=== PATIENT | male | born 1955 | race Caucasian/White ===

== ENCOUNTER 2017-03-31 01:50 | Emergency (ER) | payer MEDICAID ==
[~2017-03-31] VITALS: Ht 175.3 cm; Wt 73.0 kg
[~2017-03-31 01:50] MED LIST: AMLO5TAB88; ATOR40TA70; CLON2TAB4; COLC0.6T66; ENAL20TA; EZET10TA; GEMF600T3; GLIP10TA10; GLYB5TAB7; HYDR-2510; MELO-58; METF500T4; MIRT-91; OMEP20TA80; PIOG1TAB35; SITA100T6; TEMA30CA; TRIC54; [UNRECOGNIZED DRUG - CODE]; [UNRECOGNIZED DRUG - CODE]
[2017-03-31 03:19] LABS: BASOPHILS % 0.8 % (0.0-2.0); DIFFERENTIAL COMMENT 0; EOSINOPHILS % 2.1 % (0.0-5.0); HEMATOCRIT. 41.5 % (42.0-52.0); HEMOGLOBIN. 14.8 g/dL (14.0-18.0); LYMPHOCYTES % 32.8 % (20.0-50.0); MEAN CORPUSCULAR HEMOGLOBIN 30.5 pg (28.0-32.0); MEAN CORPUSCULAR HGB CONC 35.7 g/dL (31.0-37.0); MEAN CORPUSCULAR VOLUME 85.6 fL (80.0-94.0); MONOCYTES % 7.2 % (2.0-8.0); NEUTROPHILS % 57.1 % (40.0-76.0); PLATELET 162 x1000/uL (130-400); RED BLOOD CELL COUNT 4.85 mill/uL (4.7-6.1); RED CELL DISTRIBUTION WIDTH 12.8 % (11.6-14.6); WHITE BLOOD COUNT 6.2 x1000/uL (4.5-11.0)
[2017-03-31 03:32] LABS: ALANINE AMINOTRANSFERASE 21 IU/L (13-61); ALBUMIN 3.8 g/dL (3.4-5.0); ANION GAP 17; CALCIUM 8.7 mg/dL (8.5-10.1); CARBON DIOXIDE 23 mEq/L (21-32); CHLORIDE 101 mEq/L (98-107); INDEX HEMOLYSI 1 (1-3); INDEX ICTERIC 1 (1-4); INDEX LIPEMIC 1 (1-3); LIPASE 413 IU/L (73-393); TROPONIN I < 0.02 ng/mL (0.00-0.04); UREA NITROGEN BLOOD 8 mg/dL (7-21); eGFR > 60 mL/min (>60)
[2017-03-31] MEDS: MORPHINE SULFATE 4 MG/ML CPJ (NOT FOR IM USE) IV STA (03:40)
[2017-03-31] MEDS: SODIUM CHLORIDE 0.9% 1,000 ML IV ONE (03:41)
[2017-03-31] MEDS: ONDANSETRON HCL 4MG/2ML VIAL IV STA (03:41)
[2017-03-31] MEDS: HYDROCODONE/ACETAMINOPHEN 10/325MG TABLET PO ONE (06:21)
[2017-03-31] MEDS: INSULIN REGULAR (HUMULIN R) 300UNITS/3ML SUBCUT ONE (06:23)
[2017-03-31 06:28] VITALS: BP 106/79
[2017-03-31] MEDS ORDERED: IOHEXOL-350 100 ML BOTTLE ONE (13:50)
[2017-03-31] MEDS ORDERED: SODIUM CHLORIDE 0.9% 10ML VIAL ONE (13:50)
== END 2017-03-31 06:33 | disposition home or self-care (01) ==
LOC: ER 01:56
DX: M54.9 Dorsalgia, unspecified (principal); I10 Essential (primary) hypertension; E78.00 Pure hypercholesterolemia, unspecified; E11.9 Type 2 diabetes mellitus without complications; Z79.899 Other long term (current) drug therapy; Z79.84 Long term (current) use of oral hypoglycemic drugs
CPT/HCPCS: 36415; 71010; 71275; 80053; 83690; 84484; 85025; 93005; 96361; 96372; 96374; 96375; 99285; A4216; J1815; J2270; J2405; J7030; Q9967; Z7610

== ENCOUNTER 2017-05-02 00:49 | Emergency (ER) | payer MEDICAID ==
[~2017-05-02] VITALS: Ht 180.3 cm; Wt 80.0 kg
[~2017-05-02 00:49] MED LIST changes: -AMLO5TAB88; +AMLO5TAB88 PO; -ATOR40TA70; +ATOR40TA70 PO; +CITA40TA11; -CLON2TAB4; +CLON2TAB4 PO; -ENAL20TA; +ENAL20TA PO; -EZET10TA; +MELO-106; -MELO-58; -MIRT-91; +MIRT-91 PO; +OMEP20TA2 PO; -OMEP20TA80; +SITA100T11 PO; -SITA100T6; +ZET10; -[UNRECOGNIZED DRUG - CODE]; -[UNRECOGNIZED DRUG - CODE]; +[UNRECOGNIZED DRUG - CODE] PO
[2017-05-02] MEDS ORDERED: KETOROLAC 30MG/ML VIAL IV STA (03:52)
[2017-05-02] MEDS ORDERED: ASPIRIN 81MG TABLET PO ONE (04:00)
[2017-05-02] MEDS ORDERED: NITROGLYCERIN OINT 1GM/INCH UDPKT TD ONE (04:00)
[2017-05-02] MEDS ORDERED: LIDOCAINE 5% PATCH TOP SCH (04:00)
[2017-05-02 04:12] LABS: BASOPHILS % 0.5 % (0.0-2.0); HEMATOCRIT. 39.6 % (42.0-52.0); HEMOGLOBIN. 13.7 g/dL (14.0-18.0); LYMPHOCYTES % 12.7 % (20.0-50.0); MEAN CORPUSCULAR HEMOGLOBIN 30.2 pg (28.0-32.0); MEAN CORPUSCULAR VOLUME 87.2 fL (80.0-94.0); MEAN PLATELET VOLUME 11.4 fl (7.4-10.4); MONOCYTES % 6.5 % (2.0-8.0); NEUTROPHILS % 79.3 % (40.0-76.0); PLATELET 172 x1000/uL (130-400); RED BLOOD CELL COUNT 4.55 mill/uL (4.7-6.1)
[2017-05-02 04:26] LABS: CHLORIDE 99 mEq/L (98-107); ETHANOL BLOOD < 10 mg/dL; TROPONIN I < 0.02 ng/mL (0.00-0.04)
[2017-05-02 04:37] LABS: CARBON DIOXIDE 22 mEq/L (21-32)
[2017-05-02] MEDS ORDERED: SODIUM CHLORIDE 0.9% 1,000 ML IV ONE (04:55)
[2017-05-02 06:53] VITALS: BP 121/83
== END 2017-05-02 06:57 | disposition home or self-care (01) ==
LOC: ER 00:56
DX: S20.212A Contusion of left front wall of thorax, initial encounter (principal); S20.211A Contusion of right front wall of thorax, initial encounter; E11.65 Type 2 diabetes mellitus with hyperglycemia; E78.00 Pure hypercholesterolemia, unspecified; I11.9 Hypertensive heart disease without heart failure; F17.210 Nicotine dependence, cigarettes, uncomplicated; Z91.14 Patient's other noncompliance with medication regimen; Z79.84 Long term (current) use of oral hypoglycemic drugs; X58.XXXA Exposure to other specified factors, initial encounter; Y93.89 Activity, other specified; Y92.018 Other place in single-family (private) house as the place of occurrence of the external cause
CPT/HCPCS: 36415; 71010; 80053; 83690; 83880; 84484; 85025; 85379; 93005; 96361; 96374; 99291; G0482; J1885; J7030; 29125; 99284

== ENCOUNTER 2017-07-06 02:36 | Inpatient (IN) | payer MEDICAID ==
[~2017-07-06] VITALS: Ht 180.3 cm; Wt 73.0 kg
[2017-07-06] MEDS ORDERED: ASPIRIN 81MG TABLET PO STA (03:48)
[2017-07-06] MEDS ORDERED: NITROGLYCERIN 0.4MG TABLET SL SL PRN (04:00)
[2017-07-06 04:18] LABS: BASOPHILS % 0.9 % (0.0-2.0); EOSINOPHILS % 1.8 % (0.0-5.0); HEMATOCRIT. 41.7 % (42.0-52.0); HEMOGLOBIN. 14.5 g/dL (14.0-18.0); LYMPHOCYTES % 23.7 % (20.0-50.0); MEAN CORPUSCULAR HEMOGLOBIN 30.4 pg (28.0-32.0); MEAN CORPUSCULAR VOLUME 87.5 fL (80.0-94.0); MEAN PLATELET VOLUME 11.3 fl (7.4-10.4); MONOCYTES % 7.8 % (2.0-8.0); NEUTROPHILS % 65.8 % (40.0-76.0); PLATELET 217 x1000/uL (130-400); RED BLOOD CELL COUNT 4.76 mill/uL (4.7-6.1); RED CELL DISTRIBUTION WIDTH 12.9 % (11.6-14.6)
[2017-07-06 04:28] LABS: D-DIMER 0.43 mg/L FEU (<0.50); PARTIAL THROMBOPLASTIN TIME 23.3 sec (23.4-31.0); PROTHROMBIN TIME 10.4 sec (9.4-11.6)
[2017-07-06 04:32] LABS: TROPONIN I < 0.02 ng/mL (0.00-0.04)
[2017-07-06 04:34] LABS: CARBON DIOXIDE 28 mEq/L (21-32); CHLORIDE 94 mEq/L (98-107)
[2017-07-06] MEDS ORDERED: SODIUM CHLORIDE 0.9% 1,000 ML IV ONE (04:52)
[2017-07-06] MEDS ORDERED: INSULIN REGULAR (HUMULIN R) UD 100 UNITS/ML SYR SUBCUT ONE (05:00)
[2017-07-06] MEDS ORDERED: ONDANSETRON HCL 4MG/2ML VIAL IV STA (05:13)
[2017-07-06] MEDS ORDERED: MORPHINE SULFATE 4 MG/ML CPJ (NOT FOR IM USE) IV STA (05:13)
[2017-07-06 08:30] VITALS: BP 129/97
[2017-07-06 08:36] VITALS: BP 129/97
[2017-07-06] MEDS ORDERED: MORPHINE SULFATE 2 MG/ML CPJ (NOT FOR IM USE) IV PRN (10:15)
[2017-07-06] MEDS ORDERED: ONDANSETRON HCL 4MG/2ML VIAL IV PRN (10:15)
[2017-07-06] MEDS ORDERED: DEXTROSE 50% WATER 50ML SYRINGE IV PRN (10:15)
[2017-07-06] MEDS ORDERED: FENO145T19 PO (10:54)
[2017-07-06] MEDS ORDERED: HYDR-519 PO (11:33)
[2017-07-06] MEDS ORDERED: IBUP-2030 PO (11:33)
[2017-07-06] MEDS ORDERED: DOCU-138 PO (11:33)
[2017-07-06] MEDS ORDERED: ASEN5TAB8 SL (11:46)
[2017-07-06] MEDS ORDERED: DICL75TA5 PO (11:46)
[2017-07-06 12:19] LABS: CREATINE KINASE 45 IU/L (39-308); CREATINE KINASE MB FRACTION < 0.5 ng/mL (0.5-3.6); TROPONIN I < 0.02 ng/mL (0.00-0.04)
[2017-07-06] MEDS: DEXT 5%/0.9% NACL 1,000 ML IV SCH ×2 (12:50→21:03)
[2017-07-06] MEDS: BLOOD SUGAR DIAGNOSTIC STRIP TEST SCH ×3 (12:51→21:00)
[2017-07-06] MEDS: ENOXAPARIN 40MG/0.4ML SYR SUBCUT SCH (12:51)
[2017-07-06] MEDS ORDERED: CLONIDINE 0.2MG TABLET PO PRN (13:30)
[2017-07-06] MEDS ORDERED: MORPHINE SULFATE 2 MG/ML CPJ (NOT FOR IM USE) IV NR (13:45)
[2017-07-06] MEDS ORDERED: CLONIDINE 0.1MG TABLET PO PRN (14:00)
[2017-07-06] MEDS: ASPIRIN 81MG TABLET PO SCH (15:01)
[2017-07-06] MEDS: ATORVASTATIN CALCIUM 40MG TABLET PO SCH (15:02)
[2017-07-06] MEDS: LINAGLIPTIN 5MG TABLET PO SCH (15:02)
[2017-07-06] MEDS: OMEPRAZOLE 20MG CAPSULE EXTENDED RELEASE PO SCH (15:02)
[2017-07-06] MEDS: AMLODIPINE 2.5MG TABLET PO SCH ×2 (15:02→21:01)
[2017-07-06] MEDS: INSULIN LISPRO 100 UNITS/ML SUBCUT SCH ×3 (15:03→21:00)
[2017-07-06] MEDS: FENOFIBRATE NANOCRYSTALLIZED 145MG TABLET PO SCH (15:03)
[2017-07-06 16:00] VITALS: BP 136/93
[2017-07-06] MEDS ORDERED: MEDICATION NOT ON FORMULARY EA (Enalapril Maleate 20 MG) PO SCH (17:00)
[2017-07-06] MEDS ORDERED: MEDICATION NOT ON FORMULARY EA (Clonazepam 2 MG) PO SCH (17:00)
[2017-07-06] MEDS: CLONAZEPAM 1MG TABLET PO SCH (18:40)
[2017-07-06 20:00] VITALS: BP 138/90
[2017-07-06] MEDS ORDERED: DOXEPIN HCL 100 MG PO SCH (21:00)
[2017-07-06] MEDS ORDERED: ASENAPINE 5 MG SL SCH (21:00)
[2017-07-06] MEDS: MIRTAZAPINE 30MG TABLET PO SCH (21:01)
[2017-07-06] MEDS: ENALAPRIL 10MG TABLET PO SCH (21:02)
[2017-07-06] MEDS: MORPHINE SULFATE 2 MG/ML CPJ (NOT FOR IM USE) IV PRN (21:03)
[2017-07-06] MEDS: DOXEPIN HCL 25MG CAPSULE PO SCH (22:07)
[2017-07-06] MEDS: ZOLPIDEM TARTRATE 5MG TABLET PO PRN (23:31)
[2017-07-07] VITALS: BP 136/97
[2017-07-07] MEDS: MORPHINE SULFATE 2 MG/ML CPJ (NOT FOR IM USE) IV PRN ×4 (02:56→22:41)
[2017-07-07 04:00] VITALS: BP 95/63
[2017-07-07 06:40] LABS: BASOPHILS % 0.8 % (0.0-2.0); EOSINOPHILS % 2.1 % (0.0-5.0); HEMATOCRIT. 40.1 % (42.0-52.0); HEMOGLOBIN. 14.1 g/dL (14.0-18.0); LYMPHOCYTES % 30.9 % (20.0-50.0); MEAN CORPUSCULAR HEMOGLOBIN 30.5 pg (28.0-32.0); MEAN CORPUSCULAR VOLUME 86.4 fL (80.0-94.0); MEAN PLATELET VOLUME 10.7 fl (7.4-10.4); MONOCYTES % 6.6 % (2.0-8.0); NEUTROPHILS % 59.6 % (40.0-76.0); PLATELET 199 x1000/uL (130-400); RED BLOOD CELL COUNT 4.63 mill/uL (4.7-6.1); RED CELL DISTRIBUTION WIDTH 13.1 % (11.6-14.6)
[2017-07-07 07:02] LABS: AMYLASE 52 IU/L (25-115); CARBON DIOXIDE 27 mEq/L (21-32); HDL CHOLESTEROL 30 mg/dL (40-59); LDL CHOLESTEROL 130 mg/dL (5-100)
[2017-07-07 07:09] LABS: TROPONIN I < 0.02 ng/mL (0.00-0.04)
[2017-07-07 07:24] LABS: CHLORIDE 102 mEq/L (98-107)
[2017-07-07] MEDS: BLOOD SUGAR DIAGNOSTIC STRIP TEST SCH ×4 (07:40→20:56)
[2017-07-07 08:00] VITALS: BP 132/90
[2017-07-07] MEDS: FENOFIBRATE NANOCRYSTALLIZED 145MG TABLET PO SCH (08:45)
[2017-07-07] MEDS: ATORVASTATIN CALCIUM 40MG TABLET PO SCH (08:45)
[2017-07-07] MEDS: ENALAPRIL 10MG TABLET PO SCH ×2 (08:45→20:56)
[2017-07-07] MEDS: ENOXAPARIN 40MG/0.4ML SYR SUBCUT SCH (08:45)
[2017-07-07] MEDS: AMLODIPINE 2.5MG TABLET PO SCH ×2 (08:46→20:57)
[2017-07-07] MEDS: LINAGLIPTIN 5MG TABLET PO SCH (08:46)
[2017-07-07] MEDS: OMEPRAZOLE 20MG CAPSULE EXTENDED RELEASE PO SCH (08:46)
[2017-07-07] MEDS: ASPIRIN 81MG TABLET PO SCH (08:46)
[2017-07-07] MEDS: CLONAZEPAM 1MG TABLET PO SCH ×2 (08:46→16:24)
[2017-07-07] MEDS: INSULIN LISPRO 100 UNITS/ML SUBCUT SCH ×4 (08:48→21:15)
[2017-07-07] MEDS ORDERED: MEDICATION NOT ON FORMULARY EA (Sitagliptin Phosphate (Januvia) 100 MG) PO SCH (09:00)
[2017-07-07] MEDS ORDERED: MEDICATION NOT ON FORMULARY EA (Omeprazole 20 MG) PO SCH (09:00)
[2017-07-07 12:00] VITALS: BP 104/71
[2017-07-07] MEDS: DEXT 5%/0.9% NACL 1,000 ML IV SCH (13:10)
[2017-07-07] MEDS ORDERED: POTASSIUM CHLORIDE 20MEQ TABLET SR PO SCH (14:15)
[2017-07-07] MEDS ORDERED: IOHEXOL-300 100 ML BOTTLE ONE (14:32)
[2017-07-07] MEDS ORDERED: SODIUM CHLORIDE 0.9% 10ML VIAL ONE (14:32)
[2017-07-07] MEDS ORDERED: KCL 20MEQ/100ML PREMIX 100 ML IV SCH (15:30)
[2017-07-07 16:00] VITALS: BP 116/80
[2017-07-07 20:00] VITALS: BP 109/71
[2017-07-07] MEDS: MIRTAZAPINE 30MG TABLET PO SCH (21:10)
[2017-07-07] MEDS: DOXEPIN HCL 25MG CAPSULE PO SCH (21:10)
[2017-07-07] MEDS: ZOLPIDEM TARTRATE 5MG TABLET PO PRN (21:10)
[2017-07-08] VITALS: BP 122/75
[2017-07-08] MEDS: DEXT 5%/0.9% NACL 1,000 ML IV SCH ×2 (02:15→14:07)
[2017-07-08 04:00] VITALS: BP 128/87
[2017-07-08] MEDS: BLOOD SUGAR DIAGNOSTIC STRIP TEST SCH ×2 (06:59→12:27)
[2017-07-08 08:00] VITALS: BP 132/83
[2017-07-08] MEDS: ATORVASTATIN CALCIUM 40MG TABLET PO SCH (08:06)
[2017-07-08] MEDS: FENOFIBRATE NANOCRYSTALLIZED 145MG TABLET PO SCH (08:06)
[2017-07-08] MEDS: CLONAZEPAM 1MG TABLET PO SCH ×2 (08:06→16:17)
[2017-07-08] MEDS: ENOXAPARIN 40MG/0.4ML SYR SUBCUT SCH (08:07)
[2017-07-08] MEDS: FAMOTIDINE 20MG TABLET PO SCH ×2 (08:07→16:17)
[2017-07-08] MEDS: ASPIRIN 81MG TABLET PO SCH (08:07)
[2017-07-08] MEDS: AMLODIPINE 2.5MG TABLET PO SCH (08:07)
[2017-07-08] MEDS: LINAGLIPTIN 5MG TABLET PO SCH (08:07)
[2017-07-08] MEDS: INSULIN LISPRO 100 UNITS/ML SUBCUT SCH ×2 (08:09→13:55)
[2017-07-08] MEDS: ENALAPRIL 10MG TABLET PO SCH (08:10)
[2017-07-08] MEDS: MORPHINE SULFATE 2 MG/ML CPJ (NOT FOR IM USE) IV PRN (08:30)
[2017-07-08 13:29] LABS: BASOPHILS % 0.8 % (0.0-2.0); EOSINOPHILS % 1.7 % (0.0-5.0); HEMOGLOBIN. 13.3 g/dL (14.0-18.0); LYMPHOCYTES % 21.5 % (20.0-50.0); MEAN CORPUSCULAR HEMOGLOBIN 30.5 pg (28.0-32.0); MEAN PLATELET VOLUME 10.4 fl (7.4-10.4); MONOCYTES % 7.5 % (2.0-8.0); NEUTROPHILS % 68.5 % (40.0-76.0); PLATELET 173 x1000/uL (130-400); RED BLOOD CELL COUNT 4.37 mill/uL (4.7-6.1)
[2017-07-08 13:48] LABS: AMYLASE 52 IU/L (25-115); CARBON DIOXIDE 27 mEq/L (21-32); CHLORIDE 106 mEq/L (98-107)
[2017-07-08] MEDS ORDERED: POTASSIUM CHLORIDE 20MEQ TABLET SR PO NR (15:38)
[2017-07-08 16:39] VITALS: BP 130/84
[2017-07-09] MEDS ORDERED: GLIPIZIDE 5MG TABLET PO SCH (07:40)
== END 2017-07-08 16:55 | disposition home or self-care (01) | DRG 282 ==
LOC: ER 02:36 → EDBEDREQ 03:53 → 7WST 05:14 → EDBEDREQ 05:55 → ENRESERV 07:14
PROVIDERS: ADMIT Internal Medicine; ATTEND Internal Medicine
DX: K85.90 Acute pancreatitis without necrosis or infection, unspecified (principal); E13.00 Other specified diabetes mellitus with hyperosmolarity without nonketotic hyperglycemic-hyperosmolar coma (NKHHC); E11.65 Type 2 diabetes mellitus with hyperglycemia; I11.9 Hypertensive heart disease without heart failure; E87.1 Hypo-osmolality and hyponatremia; E78.00 Pure hypercholesterolemia, unspecified; E87.6 Hypokalemia; E78.5 Hyperlipidemia, unspecified; F41.9 Anxiety disorder, unspecified; F31.9 Bipolar disorder, unspecified; F17.200 Nicotine dependence, unspecified, uncomplicated; Z79.82 Long term (current) use of aspirin; Z79.84 Long term (current) use of oral hypoglycemic drugs; Z79.899 Other long term (current) drug therapy; Z96.651 Presence of right artificial knee joint; Z90.49 Acquired absence of other specified parts of digestive tract; Z87.01 Personal history of pneumonia (recurrent); Z82.49 Family history of ischemic heart disease and other diseases of the circulatory system; E44.1 Mild protein-calorie malnutrition
CPT/HCPCS: 36415; 71010; 73030; 73502; 74177; 76705; 80048; 80053; 80061; 82010; 82150; 82378; 82550; 82553; 82962; 83036; 83690; 83735; 83930; 84075; 84443; 84484; 85025; 85379; 85610; 85730; 93005; 93306; 96361; 96374; 96375; 99285; A4216; J1650; J1815; J2270; J2405; J3480; J7030; J7042; Q9967

== ENCOUNTER 2017-07-23 02:06 | Inpatient (IN) | payer MEDICAID, OTHER ==
[~2017-07-23] VITALS: Ht 180.3 cm; Wt 74.8 kg
[~2017-07-23 02:06] MED LIST changes: +ASEN5TAB8 SL; -CITA40TA11; -COLC0.6T66; +DICL75TA5 PO; +DOCU-138 PO; +FENO145T19 PO; -GEMF600T3; -GLIP10TA10; -GLYB5TAB7; -HYDR-2510; +HYDR-519 PO; +IBUP-2030 PO; -MELO-106; -METF500T4; -PIOG1TAB35; -TEMA30CA; -TRIC54; -ZET10
[2017-07-23] MEDS ORDERED: SODIUM CHLORIDE 0.9% 1,000 ML IV ONE (03:12)
[2017-07-23] MEDS ORDERED: FENTANYL CITRATE/PF 50MCG/ML 2ML VIAL IV ONE (03:15)
[2017-07-23] MEDS ORDERED: ASPIRIN 81MG TABLET PO ONE (03:15)
[2017-07-23] MEDS ORDERED: NITROGLYCERIN OINT 1GM/INCH UDPKT TD ONE (03:15)
[2017-07-23 03:33] LABS: BASOPHILS % 0.7 % (0.0-2.0); EOSINOPHILS % 2.1 % (0.0-5.0); HEMATOCRIT. 37.2 % (42.0-52.0); HEMOGLOBIN. 13.4 g/dL (14.0-18.0); LYMPHOCYTES % 36.9 % (20.0-50.0); MEAN CORPUSCULAR HEMOGLOBIN 30.9 pg (28.0-32.0); MEAN CORPUSCULAR VOLUME 85.8 fL (80.0-94.0); MEAN PLATELET VOLUME 10.2 fl (7.4-10.4); MONOCYTES % 7.1 % (2.0-8.0); NEUTROPHILS % 53.2 % (40.0-76.0); PLATELET 203 x1000/uL (130-400); RED BLOOD CELL COUNT 4.34 mill/uL (4.7-6.1); RED CELL DISTRIBUTION WIDTH 12.8 % (11.6-14.6)
[2017-07-23 03:38] LABS: D-DIMER 0.52 mg/L FEU (<0.50); PROTHROMBIN TIME 10.6 sec (9.4-11.6)
[2017-07-23 03:45] LABS: CARBON DIOXIDE 31 mEq/L (21-32); CHLORIDE 104 mEq/L (98-107); ETHANOL BLOOD < 10 mg/dL; TROPONIN I < 0.02 ng/mL (0.00-0.04)
[2017-07-23] MEDS ORDERED: KETOROLAC 30MG/ML VIAL IV STA (05:00)
[2017-07-23] MEDS ORDERED: POTASSIUM BICARB/CIT ACID 25 MEQ TABLET.EFF PO ONE (05:15)
[2017-07-23] MEDS ORDERED: KCL 20MEQ/100ML PREMIX 100 ML IV ONE (05:15)
[2017-07-23 08:50] VITALS: BP 136/78
[2017-07-23] MEDS ORDERED: DEXTROSE 50% WATER 50ML SYRINGE IV PRN (10:15)
[2017-07-23 10:18] VITALS: BP 134/99
[2017-07-23] MEDS ORDERED: KETOROLAC 30MG/ML VIAL IV PRN (11:00)
[2017-07-23] MEDS ORDERED: POTASSIUM CHLORIDE 20MEQ TABLET SR PO NR (11:00)
[2017-07-23 12:00] VITALS: BP 134/99
[2017-07-23] MEDS ORDERED: BLOOD SUGAR DIAGNOSTIC STRIP TEST SCH (12:20)
[2017-07-23] MEDS ORDERED: INSULIN LISPRO 100 UNITS/ML SUBCUT SCH (12:50)
[2017-07-23] MEDS ORDERED: DEXT 5%/0.45% NACL KCL 40MEQ/L 1,000 ML IV SCH (13:00)
[2017-07-23 15:57] LABS: *AMPHETAMINES SCREEN URINE NEGATIVE (NEGATIVE); *BARBITURATES SCREEN URINE NEGATIVE (NEGATIVE); *BENZODIAZEPINES SCREEN URINE NEGATIVE (NEGATIVE); *COCAINE SCREEN URINE NEGATIVE (NEGATIVE); CANNABINOID URINE SCREEN NEGATIVE (NEGATIVE); METHADONE URINE SCREEN NEGATIVE (NEGATIVE); OPIATES URINE SCREEN NEGATIVE (NEGATIVE); PHENCYCLIDINE URINE SCREEN NEGATIVE (NEGATIVE)
== END 2017-07-23 13:22 | disposition left against medical advice (07) | DRG 282 ==
LOC: ER 02:06 → ENRESERV 05:26 → 6WST 08:52
PROVIDERS: ADMIT Internal Medicine; ATTEND Internal Medicine
DX: K85.90 Acute pancreatitis without necrosis or infection, unspecified (principal); E11.65 Type 2 diabetes mellitus with hyperglycemia; I10 Essential (primary) hypertension; R07.89 Other chest pain; E11.9 Type 2 diabetes mellitus without complications; Z53.21 Procedure and treatment not carried out due to patient leaving prior to being seen by health care provider; E78.00 Pure hypercholesterolemia, unspecified; K86.1 Other chronic pancreatitis; E78.5 Hyperlipidemia, unspecified; E87.6 Hypokalemia; F17.200 Nicotine dependence, unspecified, uncomplicated; Z79.899 Other long term (current) drug therapy; Z79.1 Long term (current) use of non-steroidal anti-inflammatories (NSAID); Z91.19 Patient's noncompliance with other medical treatment and regimen
CPT/HCPCS: 36415; 71010; 74176; 78582; 80053; 80305; 82962; 83690; 83880; 84484; 85025; 85379; 85610; 93005; 96361; 96374; 96375; 99285; 99406; A9558; G0482; J1815; J1885; J3010; J3480; J7030

== ENCOUNTER 2017-08-17 13:44 | Inpatient (IN) | payer MEDICAID ==
[~2017-08-17] VITALS: Ht 170.2 cm; Wt 76.2 kg
[2017-08-17] MEDS ORDERED: KETOROLAC 30MG/ML VIAL IV STA (15:27)
[2017-08-17] MEDS ORDERED: SODIUM CHLORIDE 0.9% 1,000 ML IV ONE (15:29)
[2017-08-17 15:48] LABS: BASOPHILS % 0.5 % (0.0-2.0); EOSINOPHILS % 1.6 % (0.0-5.0); HEMATOCRIT. 38.9 % (42.0-52.0); HEMOGLOBIN. 13.9 g/dL (14.0-18.0); LYMPHOCYTES % 28.3 % (20.0-50.0); MEAN CORPUSCULAR HEMOGLOBIN 30.6 pg (28.0-32.0); MEAN CORPUSCULAR VOLUME 85.6 fL (80.0-94.0); MEAN PLATELET VOLUME 10.3 fl (7.4-10.4); NEUTROPHILS % 62.6 % (40.0-76.0); PLATELET 213 x1000/uL (130-400); RED BLOOD CELL COUNT 4.55 mill/uL (4.7-6.1); RED CELL DISTRIBUTION WIDTH 13.1 % (11.6-14.6)
[2017-08-17 15:53] LABS: PROTHROMBIN TIME 10.9 sec (9.4-11.6)
[2017-08-17 15:55] LABS: CARBON DIOXIDE 25 mEq/L (21-32); CHLORIDE 105 mEq/L (98-107)
[2017-08-17 15:57] LABS: ETHANOL BLOOD < 10 mg/dL
[2017-08-17 16:02] LABS: CREATINE KINASE 64 IU/L (39-308)
[2017-08-17 16:03] LABS: TROPONIN I < 0.02 ng/mL (0.00-0.04)
[2017-08-17] MEDS ORDERED: KCL 10MEQ/50ML PREMIX 50 ML IV ONE (16:15)
[2017-08-17] MEDS ORDERED: POTASSIUM CHLORIDE 20MEQ TABLET SR PO ONE (16:15)
[2017-08-17] MEDS: MORPHINE SULFATE 4 MG/ML CPJ (NOT FOR IM USE) IV PRN (18:56)
[2017-08-17] MEDS ORDERED: DEXTROSE 50% WATER 50ML SYRINGE IV PRN (23:45)
[2017-08-18] VITALS (7 sets, daily range): BP systolic 124–147; BP diastolic 85–100
[2017-08-18] MEDS: MORPHINE SULFATE 4 MG/ML CPJ (NOT FOR IM USE) IV PRN ×3 (00:21→09:07)
[2017-08-18] MEDS ORDERED: DOCU-138 PO (02:29)
[2017-08-18] MEDS: NITROGLYCERIN 0.1MG/HR PATCH TOP SCH ×2 (03:27→09:06)
[2017-08-18] MEDS ORDERED: DOCUSATE SODIUM 100MG CAPSULE PO SCH ×2 (06:00→09:00)
[2017-08-18] MEDS ORDERED: DICLOFENAC SODIUM 75MG DR (EC) TABLET PO SCH (07:50)
[2017-08-18] MEDS: INSULIN LISPRO 100 UNITS/ML SUBCUT SCH ×3 (07:50→18:27)
[2017-08-18] MEDS: BLOOD SUGAR DIAGNOSTIC STRIP TEST SCH ×4 (08:12→21:04)
[2017-08-18] MEDS ORDERED: AMLODIPINE 5MG TABLET PO SCH (09:00)
[2017-08-18] MEDS ORDERED: ATORVASTATIN CALCIUM 40MG TABLET PO SCH (09:00)
[2017-08-18] MEDS ORDERED: HYDROCODONE/ACETAMINOPHEN 10/325MG TABLET PO PRN (09:30)
[2017-08-18 11:02] LABS: HEMATOCRIT 37.5 % (42.0-52.0); HEMOGLOBIN 13.1 g/dL (14.0-18.0); MEAN CORPUSCULAR HEMOGLOBIN 30.3 pg (28.0-32.0); MEAN CORPUSCULAR VOLUME 86.9 fL (80.0-94.0); PLATELET 197 x1000/uL (130-400); RED BLOOD CELL COUNT 4.31 mill/uL (4.7-6.1)
[2017-08-18 11:05] LABS: CARBON DIOXIDE 26 mEq/L (21-32); CHLORIDE 107 mEq/L (98-107); TROPONIN I < 0.02 ng/mL (0.00-0.04)
[2017-08-18] MEDS: POTASSIUM CHLORIDE 20MEQ TABLET SR PO SCH ×2 (13:01→16:26)
[2017-08-18 13:33] LABS: CLARITY URINE CLEAR (CLEAR); COLOR URINE YELLOW (YELLOW); GLUCOSE URINE TRACE (NEGATIVE); KETONES URINE NEGATIVE (NEGATIVE); LEUKOCYTE ESTERASE URINE NEGATIVE (NEGATIVE); NITRITE URINE NEGATIVE (NEGATIVE); OCCULT BLOOD URINE NEGATIVE (NEGATIVE); PROTEIN URINE NEGATIVE (NEGATIVE); SPECIFIC GRAVITY URINE 1.016 (1.005-1.030); UROBILINOGEN URINE 0.2 E.U./dL (0.2-1.0)
[2017-08-18 13:52] LABS: *AMPHETAMINES SCREEN URINE NEGATIVE (NEGATIVE); *BARBITURATES SCREEN URINE NEGATIVE (NEGATIVE); *BENZODIAZEPINES SCREEN URINE NEGATIVE (NEGATIVE); *COCAINE SCREEN URINE NEGATIVE (NEGATIVE); CANNABINOID URINE SCREEN NEGATIVE (NEGATIVE); METHADONE URINE SCREEN NEGATIVE (NEGATIVE); OPIATES URINE SCREEN PRESUMTIVE POSITIVE (NEGATIVE); PHENCYCLIDINE URINE SCREEN NEGATIVE (NEGATIVE)
[2017-08-18] MEDS ORDERED: DOXEPIN HCL 25MG CAPSULE PO SCH (21:00)
[2017-08-18] MEDS ORDERED: DOXEPIN HCL 100 MG PO SCH (21:00)
[2017-09-15 13:55] LABS: 7-AMINOCLONAZEPAM CONFIRM 34 ng/mL (.); ALPRAZOLAM CONFIRM Negative (.); BARBITURATE SCREEN Negative ug/mL (Cutoff:0.1); BENZODIAZEPINE SCREEN ++POSITIVE++ ng/mL (Cutoff:20); CHLORDIAZEPOXIDE CONFIRM Negative (.); CLONAZEPAM CONFIRM 17 ng/mL (.); DESMETHYLCHLORDIAZEPOXIDE Negative (.); DIAZEPAM CONFIRM Negative (.); FLURAZEPAM CONFIRM Negative (.); LORAZEPAM CONFIRM Negative (.); MIDAZOLAM CONFIRM Negative (.); OPIATES SCREEN ++POSITIVE++ ng/mL (Cutoff:5); OXAZEPAM CONFIRM Negative (.); PHENCYCLIDINE SCREEN Negative ng/mL (Cutoff:8); TEMAZEPAM CONFIRM Negative (.); TRIAZOLAM CONFIRM Negative (.)
== END 2017-08-18 21:25 | disposition left against medical advice (07) | DRG 203 ==
LOC: ER 15:04 → 6WST 16:27 → EDBEDREQ 16:29 → ENRESERV 19:53
PROVIDERS: ADMIT Internal Medicine; ATTEND Internal Medicine
DX: M94.0 Chondrocostal junction syndrome [Tietze] (principal); E11.65 Type 2 diabetes mellitus with hyperglycemia; I10 Essential (primary) hypertension; E11.9 Type 2 diabetes mellitus without complications; F31.9 Bipolar disorder, unspecified; E78.00 Pure hypercholesterolemia, unspecified; Z53.21 Procedure and treatment not carried out due to patient leaving prior to being seen by health care provider; Z96.659 Presence of unspecified artificial knee joint; E87.6 Hypokalemia; F41.9 Anxiety disorder, unspecified; R07.81 Pleurodynia; F17.210 Nicotine dependence, cigarettes, uncomplicated; Z86.73 Personal history of transient ischemic attack (TIA), and cerebral infarction without residual deficits; Z79.899 Other long term (current) drug therapy
CPT/HCPCS: 36415; 71010; 80053; 80305; 80307; 81001; 82550; 82962; 83036; 83605; 83690; 83735; 83880; 84484; 85025; 85027; 85610; 85651; 93005; 96361; 96374; 99285; G0482; J1815; J1885; J2270; J3480; J7030

== ENCOUNTER 2018-02-23 15:11 | Emergency (ER) | payer MEDICAID ==
[~2018-02-23] VITALS: Ht 177.8 cm; Wt 64.0 kg
[~2018-02-23 15:11] MED LIST changes: -DICL75TA5 PO; -FENO145T19 PO; +FENO145T36 PO; -IBUP-2030 PO
[2018-02-23 16:38] LABS: BASOPHILS % 0.7 % (0.0-2.0); EOSINOPHILS % 1.6 % (0.0-5.0); HEMATOCRIT. 40.7 % (42.0-52.0); HEMOGLOBIN. 13.9 g/dL (14.0-18.0); MEAN CORPUSCULAR HEMOGLOBIN 29.6 pg (28.0-32.0); MEAN CORPUSCULAR VOLUME 86.8 fL (80.0-94.0); MEAN PLATELET VOLUME 9.2 fl (7.4-10.4); MONOCYTES % 6.8 % (2.0-8.0); NEUTROPHILS % 71.9 % (40.0-76.0); PLATELET 233 x1000/uL (130-400); RED BLOOD CELL COUNT 4.69 mill/uL (4.7-6.1); RED CELL DISTRIBUTION WIDTH 13.1 % (11.6-14.6)
[2018-02-23 16:42] LABS: CHLORIDE 104 mEq/L (98-107)
[2018-02-23 16:50] VITALS: BP 140/91
[2018-02-23] MEDS ORDERED: POTASSIUM CHLORIDE 20MEQ TABLET SR PO ONE (17:15)
== END 2018-02-23 17:40 | disposition left against medical advice (07) ==
LOC: ER 15:31
DX: E11.65 Type 2 diabetes mellitus with hyperglycemia (principal); E87.6 Hypokalemia; E78.00 Pure hypercholesterolemia, unspecified; F03.90 Unspecified dementia, unspecified severity, without behavioral disturbance, psychotic disturbance, mood disturbance, and anxiety; F17.200 Nicotine dependence, unspecified, uncomplicated; I10 Essential (primary) hypertension; R45.851 Suicidal ideations; F31.9 Bipolar disorder, unspecified; Z90.49 Acquired absence of other specified parts of digestive tract; Z98.890 Other specified postprocedural states; Z90.89 Acquired absence of other organs
CPT/HCPCS: 36415; 80048; 85025; 99284

== ENCOUNTER 2018-06-10 02:54 | Emergency (ER) | payer MEDICAID, OTHER ==
[~2018-06-10] VITALS: Ht 180.3 cm; Wt 78.0 kg
[~2018-06-10 02:54] MED LIST changes: +CLON2TAB11 PO; -CLON2TAB4 PO
[2018-06-10] MEDS ORDERED: KETOROLAC 60MG/2ML VIAL IM ONE (04:15)
[2018-06-10 06:54] VITALS: BP 130/75
== END 2018-06-10 10:11 | disposition home or self-care (01) ==
LOC: ER 02:54
DX: E11.40 Type 2 diabetes mellitus with diabetic neuropathy, unspecified (principal); I10 Essential (primary) hypertension; E78.00 Pure hypercholesterolemia, unspecified; F17.200 Nicotine dependence, unspecified, uncomplicated; Z96.659 Presence of unspecified artificial knee joint
CPT/HCPCS: 93970; 96372; 99284; J1885

== ENCOUNTER 2018-06-27 05:44 | Day surgery (SDC) | payer MEDICAID, OTHER ==
[~2018-06-27] VITALS: Ht 180.3 cm; Wt 77.1 kg
[2018-06-27 06:25] LABS: BASOPHILS % 0.8 % (0.0-2.0); EOSINOPHILS % 2.3 % (0.0-5.0); HEMATOCRIT. 40.9 % (42.0-52.0); HEMOGLOBIN. 14.3 g/dL (14.0-18.0); LYMPHOCYTES % 23.2 % (20.0-50.0); MEAN CORPUSCULAR HEMOGLOBIN 31.1 pg (28.0-32.0); MEAN CORPUSCULAR VOLUME 89.3 fL (80.0-94.0); MEAN PLATELET VOLUME 9.9 fl (7.4-10.4); MONOCYTES % 8.3 % (2.0-8.0); NEUTROPHILS % 65.4 % (40.0-76.0); PLATELET 177 x1000/uL (130-400); RED BLOOD CELL COUNT 4.58 mill/uL (4.7-6.1); RED CELL DISTRIBUTION WIDTH 13.6 % (11.6-14.6)
[2018-06-27 06:27] LABS: CHLORIDE 106 mEq/L (98-107)
[2018-06-27 06:30] LABS: INR 1.1; PARTIAL THROMBOPLASTIN TIME 24.5 sec (23.4-31.0); PROTHROMBIN TIME 10.7 sec (9.1-11.1)
[2018-06-27 07:11] LABS: CLARITY URINE CLEAR (CLEAR); COLOR URINE YELLOW (YELLOW); KETONES URINE NEGATIVE (NEGATIVE); LEUKOCYTE ESTERASE URINE NEGATIVE (NEGATIVE); NITRITE URINE NEGATIVE (NEGATIVE); OCCULT BLOOD URINE NEGATIVE (NEGATIVE); PROTEIN URINE NEGATIVE (NEGATIVE); SPECIFIC GRAVITY URINE 1.006 (1.005-1.030); UROBILINOGEN URINE 0.2 E.U./dL (0.2-1.0)
[2018-06-27] MEDS ORDERED: BUPIVACAINE HCL/EPINEPHRINE/PF 0.5%/0.0005 10ML ONE (07:37)
[2018-06-27] MEDS ORDERED: PROPOFOL 200MG/20ML VIAL IV ONE (07:58)
[2018-06-27] MEDS ORDERED: FENTANYL CITRATE/PF 50MCG/ML 5ML VIAL ONE (07:58)
[2018-06-27] MEDS ORDERED: MIDAZOLAM HCL 2 MG/2 ML VIAL ONE (07:59)
[2018-06-27] MEDS ORDERED: ROCURONIUM BROMIDE 10MG/ML VIAL 5ML IV ONE (07:59)
[2018-06-27] MEDS ORDERED: KETOROLAC 30MG/ML VIAL ONE (08:12)
[2018-06-27] MEDS ORDERED: DEXAMETHASONE 4MG/ML 1ML VIAL ONE (08:12)
[2018-06-27] MEDS ORDERED: LIDOCAINE HCL/PF 1% 10 MG/ML 5ML VIAL ONE (08:12)
[2018-06-27] MEDS ORDERED: CEFAZOLIN SODIUM 1000MG/VIAL ONE (08:12)
[2018-06-27] MEDS ORDERED: MORPHINE SULFATE/PF 1MG/ML 10ML AMP ONE (08:28)
[2018-06-27] MEDS ORDERED: NEOSTIGMINE METHYLSULFATE 1MG/ML 10 ML VIAL ONE (08:58)
[2018-06-27] MEDS ORDERED: GLYCOPYRROLATE 0.2 MG/ML 2ML VIAL ONE (08:58)
[2018-06-27] MEDS ORDERED: HYDROCODONE/ACETAMINOPHEN 10/325MG TABLET PO PRN (09:00)
[2018-06-27] MEDS ORDERED: FENTANYL CITRATE/PF 50MCG/ML 2ML VIAL IV PRN (09:45)
[2018-06-27 09:56] VITALS: BP 106/63
== END 2018-06-27 11:45 | disposition home or self-care (01) ==
LOC: OR 05:44 → EDSTATUS 09:30 → OR 11:45
PROVIDERS: ATTEND Orthopaedic Surgery
DX: M23.322 Other meniscus derangements, posterior horn of medial meniscus, left knee (principal); M23.362 Other meniscus derangements, other lateral meniscus, left knee; M65.9 Synovitis and tenosynovitis, unspecified; M94.262 Chondromalacia, left knee; E78.00 Pure hypercholesterolemia, unspecified; I10 Essential (primary) hypertension; E11.9 Type 2 diabetes mellitus without complications; Z96.651 Presence of right artificial knee joint; F17.210 Nicotine dependence, cigarettes, uncomplicated; Z79.899 Other long term (current) drug therapy; Z98.890 Other specified postprocedural states
CPT/HCPCS: 29880; 36415; 80048; 81003; 82962; 85025; 85610; 85730; 88304; 88311; 97116; J0171; J0690; J1100; J1885; J2250; J2710; J3010; J3490; J7120; L1830; J2274; J2704

== ENCOUNTER 2018-07-24 17:55 | Inpatient (IN) | payer MEDICAID ==
[~2018-07-24] VITALS: Ht 182.9 cm; Wt 81.6 kg
[2018-07-24] MEDS ORDERED: SODIUM CHLORIDE 0.9% 1,000 ML IV ONE (20:42)
[2018-07-24] MEDS ORDERED: CHLORDIAZEPOXIDE 25MG CAPSULE PO ONE (21:15)
[2018-07-24] MEDS ORDERED: LORAZEPAM 2MG/ML CPJ IV ONE (21:15)
[2018-07-24] MEDS ORDERED: FOLIC ACID 1 MG, THIAMINE HCL 100 MG, MVI, ADULT NO.1 10 ML in DEXTROSE 5% WATER 1,000 ML IV ONE ×4 (21:30)
[2018-07-24 21:40] LABS: BASOPHILS % 0.4 % (0.0-2.0); EOSINOPHILS % 0.4 % (0.0-5.0); HEMATOCRIT. 39.7 % (42.0-52.0); HEMOGLOBIN. 13.8 g/dL (14.0-18.0); LYMPHOCYTES % 11.5 % (20.0-50.0); MEAN CORPUSCULAR HEMOGLOBIN 30.8 pg (28.0-32.0); MEAN CORPUSCULAR VOLUME 88.9 fL (80.0-94.0); MEAN PLATELET VOLUME 10.5 fl (7.4-10.4); MONOCYTES % 5.2 % (2.0-8.0); NEUTROPHILS % 82.5 % (40.0-76.0); PLATELET 184 x1000/uL (130-400); RED BLOOD CELL COUNT 4.47 mill/uL (4.7-6.1)
[2018-07-24 21:43] LABS: CHLORIDE 102 mEq/L (98-107)
[2018-07-24 21:44] LABS: INR 1.1; PARTIAL THROMBOPLASTIN TIME 23.1 sec (23.4-31.0); PROTHROMBIN TIME 10.7 sec (9.1-11.1)
[2018-07-24 21:48] LABS: ETHANOL BLOOD < 10 mg/dL
[2018-07-24 21:49] LABS: CLARITY URINE CLEAR (CLEAR); COLOR URINE YELLOW (YELLOW); KETONES URINE NEGATIVE (NEGATIVE); LEUKOCYTE ESTERASE URINE NEGATIVE (NEGATIVE); NITRITE URINE NEGATIVE (NEGATIVE); OCCULT BLOOD URINE TRACE (NEGATIVE); PROTEIN URINE 3+ (NEGATIVE); SPECIFIC GRAVITY URINE 1.018 (1.005-1.030); UROBILINOGEN URINE 0.2 E.U./dL (0.2-1.0)
[2018-07-24 21:52] LABS: CREATINE KINASE 327 IU/L (39-308)
[2018-07-24 21:54] LABS: CARBAMAZEPINE < 0.5 ug/mL (4-12); PHENOBARBITAL < 2.1 ug/mL (15.0-40.0); VALPROIC ACID < 3.0 ug/mL (50-100)
[2018-07-24 22:00] LABS: *AMPHETAMINES SCREEN URINE NEGATIVE (NEGATIVE); *BARBITURATES SCREEN URINE NEGATIVE (NEGATIVE); *BENZODIAZEPINES SCREEN URINE NEGATIVE (NEGATIVE); *COCAINE SCREEN URINE NEGATIVE (NEGATIVE); METHADONE URINE SCREEN NEGATIVE (NEGATIVE)
[2018-07-24 22:01] LABS: CANNABINOID URINE SCREEN NEGATIVE (NEGATIVE); OPIATES URINE SCREEN NEGATIVE (NEGATIVE); PHENCYCLIDINE URINE SCREEN NEGATIVE (NEGATIVE)
[2018-07-25] VITALS (8 sets, daily range): BP systolic 120–148; BP diastolic 82–97
[2018-07-25] MEDS ORDERED: NA PHOS,M-B/NA PHOS,DI-BA ENEMA 118ML PR PRN (04:00)
[2018-07-25] MEDS ORDERED: GUAIFENESIN 200MG/10ML SUGAR FREE UDC PO PRN (04:00)
[2018-07-25] MEDS ORDERED: IPRATROPIUM/ALBUTEROL 0.5-3(2.5)MG/3ML NEB INH PRN (04:00)
[2018-07-25] MEDS ORDERED: CLONIDINE 0.1MG TABLET PO PRN (04:00)
[2018-07-25] MEDS ORDERED: DIPHENHYDRAMINE 50MG/ML VIAL IV PRN (04:00)
[2018-07-25] MEDS ORDERED: MAGNESIUM/ALUMINUM HYDROXIDE/SIMETHICONE 30ML UDC PO PRN (04:00)
[2018-07-25] MEDS ORDERED: LORAZEPAM 2MG/ML CPJ IV PRN (04:00)
[2018-07-25] MEDS ORDERED: ACETAMINOPHEN 325MG TABLET PO PRN (04:00)
[2018-07-25] MEDS ORDERED: ONDANSETRON HCL 4MG/2ML INJ IV PRN (04:00)
[2018-07-25] MEDS ORDERED: DOCUSATE SODIUM 100MG CAPSULE PO PRN (04:00)
[2018-07-25] MEDS: HYDROCODONE/ACETAMINOPHEN 5/325MG TABLET PO PRN ×2 (04:34→11:10)
[2018-07-25 07:54] LABS: CHLORIDE 106 mEq/L (98-107)
[2018-07-25] MEDS: ENOXAPARIN 40MG/0.4ML SYR SUBCUT SCH (08:48)
[2018-07-25] MEDS: SODIUM CHLORIDE 0.45% 1,000 ML IV SCH ×2 (08:48→23:39)
[2018-07-25] MEDS: ASPIRIN 81MG EC TABLET PO SCH (09:21)
[2018-07-25] MEDS ORDERED: POTASSIUM CHLORIDE INJ 40 MEQ in DEXT 5% WATER 250 ML IV NR (12:30)
[2018-07-25] MEDS: OLANZAPINE 5MG TABLET PO SCH (15:52)
[2018-07-25] MEDS: CLONAZEPAM 1MG TABLET PO SCH ×2 (15:52→20:20)
[2018-07-25] MEDS ORDERED: MIRTAZAPINE 30MG TABLET PO SCH (21:00)
[2018-07-25] MEDS: MORPHINE SULFATE 4 MG/ML CPJ (NOT FOR IM USE) IV PRN (23:38)
[2018-07-26] VITALS: BP 140/85
[2018-07-26 01:24] LABS: CREATINE KINASE MB FRACTION 1.3 ng/mL (0.5-3.6)
[2018-07-26 04:00] VITALS: BP 134/82
[2018-07-26] MEDS: HYDROCODONE/ACETAMINOPHEN 5/325MG TABLET PO PRN (04:21)
[2018-07-26] MEDS: MORPHINE SULFATE 4 MG/ML CPJ (NOT FOR IM USE) IV PRN ×2 (07:04→13:26)
[2018-07-26 07:09] LABS: BASOPHILS % 0.8 % (0.0-2.0); EOSINOPHILS % 2.4 % (0.0-5.0); HEMATOCRIT. 37.2 % (42.0-52.0); LYMPHOCYTES % 31.2 % (20.0-50.0); MEAN CORPUSCULAR HEMOGLOBIN 30.8 pg (28.0-32.0); MEAN CORPUSCULAR VOLUME 88.4 fL (80.0-94.0); MEAN PLATELET VOLUME 10.5 fl (7.4-10.4); MONOCYTES % 7.9 % (2.0-8.0); NEUTROPHILS % 57.7 % (40.0-76.0); PLATELET 160 x1000/uL (130-400); RED BLOOD CELL COUNT 4.21 mill/uL (4.7-6.1); RED CELL DISTRIBUTION WIDTH 12.8 % (11.6-14.6)
[2018-07-26 07:17] LABS: CHLORIDE 107 mEq/L (98-107)
[2018-07-26 07:30] LABS: HDL CHOLESTEROL 29 mg/dL (40-59)
[2018-07-26 07:32] LABS: LDL CHOLESTEROL 92 mg/dL (5-100)
[2018-07-26 07:34] LABS: CREATINE KINASE 288 IU/L (39-308); T4 FREE 1.24 ng/dL (0.76-1.46)
[2018-07-26 07:39] LABS: CREATINE KINASE MB FRACTION 1.5 ng/mL (0.5-3.6)
[2018-07-26 08:00] VITALS: BP 155/97
[2018-07-26] MEDS ORDERED: POTASSIUM CHLORIDE 20MEQ TABLET SR PO NR (08:45)
[2018-07-26] MEDS: OLANZAPINE 5MG TABLET PO SCH (08:49)
[2018-07-26] MEDS: ENOXAPARIN 40MG/0.4ML SYR SUBCUT SCH (08:49)
[2018-07-26] MEDS: CLONAZEPAM 1MG TABLET PO SCH (08:49)
[2018-07-26] MEDS: ASPIRIN 81MG EC TABLET PO SCH (08:49)
[2018-07-26 12:00] VITALS: BP 126/96
[2018-07-26 15:25] VITALS: BP 126/96
[2018-07-26 16:02] LABS: CREATINE KINASE MB FRACTION 1.3 ng/mL (0.5-3.6)
== END 2018-07-26 15:50 | disposition home or self-care (01) | DRG 53 ==
LOC: ER 18:02 → EDBEDREQ 22:57 → EDBEDREQTM 22:57 → 7WST 23:07 → ENRESERV 23:07
PROVIDERS: ADMIT Internal Medicine; ATTEND Internal Medicine
PROC: 4A00X4Z Measurement of Central Nervous Electrical Activity, External Approach (ICD-10-PCS; principal; 2018-07-26)
DX: G40.89 Other seizures (principal); E11.40 Type 2 diabetes mellitus with diabetic neuropathy, unspecified; R65.10 Systemic inflammatory response syndrome (SIRS) of non-infectious origin without acute organ dysfunction; E11.65 Type 2 diabetes mellitus with hyperglycemia; F31.9 Bipolar disorder, unspecified; F13.239 Sedative, hypnotic or anxiolytic dependence with withdrawal, unspecified; E87.6 Hypokalemia; I10 Essential (primary) hypertension; E78.5 Hyperlipidemia, unspecified; F41.9 Anxiety disorder, unspecified; E78.00 Pure hypercholesterolemia, unspecified; F17.210 Nicotine dependence, cigarettes, uncomplicated; Z96.651 Presence of right artificial knee joint; Z79.84 Long term (current) use of oral hypoglycemic drugs; Z79.899 Other long term (current) drug therapy
CPT/HCPCS: 36415; 70450; 80048; 80053; 80061; 80156; 80165; 80184; 80185; 80305; 81003; 82550; 82553; 82962; 83036; 83735; 83880; 84132; 84439; 84443; 84484; 85025; 85379; 85610; 85730; 93005; 93306; 93970; 96361; 96365; 96375; 97162; 99291; G0482; J1650; J2060; J2270; J3411; J3480; J3490; J7030; J7060; J7070

== ENCOUNTER 2019-06-03 17:41 | Inpatient (IN) | payer MEDICAID ==
[~2019-06-03] VITALS: Ht 180.3 cm; Wt 81.4 kg
[2019-06-03] MEDS ORDERED: MORPHINE SULFATE 4 MG/ML CPJ (NOT FOR IM USE) IV STA (19:20)
[2019-06-03] MEDS ORDERED: SODIUM CHLORIDE 0.9% 1,000 ML IV ONE (19:20)
[2019-06-03] MEDS ORDERED: ONDANSETRON HCL 4MG/2ML INJ IV STA (19:20)
[2019-06-03 19:48] LABS: CHLORIDE 100 mEq/L (98-107)
[2019-06-03 19:51] LABS: ETHANOL BLOOD < 10 mg/dL
[2019-06-03 19:53] LABS: PARTIAL THROMBOPLASTIN TIME 20.8 sec (23.4-31.0)
[2019-06-03 19:54] LABS: HEMATOCRIT. 36.4 % (42.0-52.0); HEMOGLOBIN. 12.6 g/dL (14.0-18.0); MEAN CORPUSCULAR HEMOGLOBIN 30.5 pg (28.0-32.0); MEAN CORPUSCULAR VOLUME 87.8 fL (80.0-94.0); MEAN PLATELET VOLUME 10.9 fl (7.4-10.4); PLATELET 176 x1000/uL (130-400); RED BLOOD CELL COUNT 4.14 mill/uL (4.7-6.1); RED CELL DISTRIBUTION WIDTH 14.4 % (11.6-14.6)
[2019-06-03 20:54] LABS: PLATELET ESTIMATE NORMAL
[2019-06-03 22:20] LABS: CLARITY URINE CLEAR (CLEAR); COLOR URINE YELLOW (YELLOW); KETONES URINE NEGATIVE (NEGATIVE); LEUKOCYTE ESTERASE URINE NEGATIVE (NEGATIVE); NITRITE URINE NEGATIVE (NEGATIVE); OCCULT BLOOD URINE NEGATIVE (NEGATIVE); PH URINE 6.5 (4.5-8.0); PROTEIN URINE NEGATIVE (NEGATIVE); SPECIFIC GRAVITY URINE 1.002 (1.005-1.030); UROBILINOGEN URINE 0.2 E.U./dL (0.2-1.0)
[2019-06-03] MEDS ORDERED: KCL 20MEQ/100ML PREMIX 100 ML IV ONE (22:30)
[2019-06-03] MEDS ORDERED: POTASSIUM CHLORIDE 20MEQ TABLET SR PO ONE (22:30)
[2019-06-03 22:38] LABS: *AMPHETAMINES SCREEN URINE NEGATIVE (NEGATIVE); *BARBITURATES SCREEN URINE NEGATIVE (NEGATIVE); *BENZODIAZEPINES SCREEN URINE NEGATIVE (NEGATIVE); *COCAINE SCREEN URINE NEGATIVE (NEGATIVE)
[2019-06-03 22:39] LABS: CANNABINOID URINE SCREEN NEGATIVE (NEGATIVE); METHADONE URINE SCREEN NEGATIVE (NEGATIVE); OPIATES URINE SCREEN NEGATIVE (NEGATIVE); PHENCYCLIDINE URINE SCREEN NEGATIVE (NEGATIVE)
[2019-06-04] MEDS ORDERED: ACETAMINOPHEN 325MG TABLET PO PRN
[2019-06-04] MEDS ORDERED: ONDANSETRON HCL 4MG/2ML INJ IV PRN
[2019-06-04] MEDS ORDERED: MAGNESIUM/ALUMINUM HYDROXIDE/SIMETHICONE 30ML UDC PO PRN
[2019-06-04] MEDS ORDERED: IPRATROPIUM/ALBUTEROL 0.5-3(2.5)MG/3ML NEB INH PRN
[2019-06-04] MEDS ORDERED: DOCUSATE SODIUM 100MG CAPSULE PO PRN
[2019-06-04] MEDS ORDERED: GUAIFENESIN 200MG/10ML SUGAR FREE UDC PO PRN
[2019-06-04] MEDS ORDERED: POTASSIUM CHLORIDE 20MEQ TABLET SR PO NR (00:45)
[2019-06-04 01:16] LABS: CHLORIDE 109 mEq/L (98-107)
[2019-06-04] MEDS ORDERED: ONDANSETRON HCL 4MG/2ML INJ IV ONE (01:45)
[2019-06-04] MEDS ORDERED: MORPHINE SULFATE 4 MG/ML CPJ (NOT FOR IM USE) IV ONE (01:45)
[2019-06-04] MEDS ORDERED: DEXTROSE 50% WATER 50ML SYRINGE IV PRN (03:30)
[2019-06-04 04:32] VITALS: BP 149/82
[2019-06-04] MEDS: HYDROCODONE/ACETAMINOPHEN 5/325MG TABLET PO PRN ×3 (06:03→15:58)
[2019-06-04] MEDS: BLOOD SUGAR DIAGNOSTIC STRIP TEST SCH ×4 (06:04→20:24)
[2019-06-04] MEDS: INSULIN LISPRO 100 UNITS/ML SUBCUT SCH ×4 (07:36→20:25)
[2019-06-04 08:00] VITALS: BP 148/87
[2019-06-04] MEDS ORDERED: ENOXAPARIN 30MG/0.3ML SYR SUBCUT SCH (09:00)
[2019-06-04 11:19] LABS: BASOPHILS % 0.8 % (0.0-2.0); EOSINOPHILS % 3.4 % (0.0-5.0); HEMATOCRIT. 36.8 % (42.0-52.0); HEMOGLOBIN. 12.7 g/dL (14.0-18.0); MEAN CORPUSCULAR VOLUME 87.1 fL (80.0-94.0); MEAN PLATELET VOLUME 11.2 fl (7.4-10.4); MONOCYTES % 10.7 % (2.0-8.0); NEUTROPHILS % 69.1 % (40.0-76.0); PLATELET 134 x1000/uL (130-400); RED BLOOD CELL COUNT 4.23 mill/uL (4.7-6.1); RED CELL DISTRIBUTION WIDTH 14.6 % (11.6-14.6)
[2019-06-04 11:22] LABS: LDL CHOLESTEROL 65 mg/dL (5-100)
[2019-06-04 11:24] LABS: CREATINE KINASE 290 IU/L (39-308); HDL CHOLESTEROL 25 mg/dL (40-59)
[2019-06-04 12:00] VITALS: BP 145/90
[2019-06-04 16:00] VITALS: BP 150/83
[2019-06-04] MEDS: LORAZEPAM 2MG/ML CPJ IV PRN ×2 (16:41→22:26)
[2019-06-04 16:52] LABS: CREATINE KINASE 249 IU/L (39-308)
[2019-06-04 16:53] LABS: CREATINE KINASE MB FRACTION 1.9 ng/mL (0.5-3.6)
[2019-06-04] MEDS ORDERED: NON FORMULARY PATIENT HOME MED XX SCH (19:15)
[2019-06-04 20:00] VITALS: BP 156/92
[2019-06-04] MEDS: AMLODIPINE 5MG TABLET PO SCH (20:23)
[2019-06-04] MEDS: ENALAPRIL 5MG TABLET PO SCH (20:23)
[2019-06-04] MEDS: MIRTAZAPINE 30MG TABLET PO SCH (20:24)
[2019-06-05] VITALS: BP 173/100
[2019-06-05] MEDS: HYDROCODONE/ACETAMINOPHEN 5/325MG TABLET PO PRN ×3 (02:09→21:01)
[2019-06-05 04:00] VITALS: BP 171/100
[2019-06-05] MEDS: OMEPRAZOLE 20MG CAPSULE EXTENDED RELEASE PO SCH (06:33)
[2019-06-05] MEDS: CLONIDINE 0.1MG TABLET PO PRN ×2 (06:34→20:59)
[2019-06-05 07:35] LABS: BASOPHILS % 0.5 % (0.0-2.0); EOSINOPHILS % 1.7 % (0.0-5.0); HEMATOCRIT. 41.4 % (42.0-52.0); HEMOGLOBIN. 14.7 g/dL (14.0-18.0); LYMPHOCYTES % 17.2 % (20.0-50.0); MEAN CORPUSCULAR HEMOGLOBIN 30.5 pg (28.0-32.0); MEAN CORPUSCULAR VOLUME 86.2 fL (80.0-94.0); MEAN PLATELET VOLUME 10.8 fl (7.4-10.4); NEUTROPHILS % 70.6 % (40.0-76.0); PLATELET 155 x1000/uL (130-400); RED CELL DISTRIBUTION WIDTH 14.3 % (11.6-14.6)
[2019-06-05] MEDS: BLOOD SUGAR DIAGNOSTIC STRIP TEST SCH ×4 (07:52→20:55)
[2019-06-05 08:00] VITALS: BP 153/98
[2019-06-05] MEDS: ATORVASTATIN CALCIUM 40MG TABLET PO SCH (08:53)
[2019-06-05] MEDS: CLONAZEPAM 1MG TABLET PO SCH ×2 (08:53→18:34)
[2019-06-05] MEDS: ENALAPRIL 5MG TABLET PO SCH ×2 (08:53→21:00)
[2019-06-05] MEDS: AMLODIPINE 5MG TABLET PO SCH (08:53)
[2019-06-05] MEDS: INSULIN LISPRO 100 UNITS/ML SUBCUT SCH ×4 (08:54→21:02)
[2019-06-05] MEDS: ENOXAPARIN 40MG/0.4ML SYR SUBCUT SCH (08:55)
[2019-06-05] MEDS: LINAGLIPTIN 5MG TABLET PO SCH (08:56)
[2019-06-05] MEDS: FENOFIBRATE NANOCRYSTALLIZED 145MG TABLET PO SCH (08:59)
[2019-06-05 10:16] LABS: CHLORIDE 106 mEq/L (98-107)
[2019-06-05 10:27] LABS: TOTAL IRON BINDING CAPACITY 323 ug/dL (250-450)
[2019-06-05] MEDS ORDERED: POTASSIUM CHLORIDE 20MEQ TABLET SR PO SCH (11:45)
[2019-06-05 12:00] VITALS: BP 124/83
[2019-06-05] MEDS: CLOTRIMAZOLE 1% CREAM 30GM TOP SCH (12:23)
[2019-06-05] MEDS: POTASSIUM CHLORIDE INJ 40 MEQ in DEXT 5% WATER 250 ML IV ONE ×2 (12:30→12:33)
[2019-06-05] MEDS ORDERED: POTASSIUM CHLORIDE 20MEQ TABLET SR PO NR ×2 (12:45→17:00)
[2019-06-05] MEDS ORDERED: INSU100I28 SQ (16:07)
[2019-06-05] MEDS ORDERED: CLOT15CR2 TOP (16:07)
[2019-06-05 16:46] VITALS: BP 149/90
[2019-06-05] MEDS: LORAZEPAM 2MG/ML CPJ IV PRN ×2 (16:49→21:53)
[2019-06-05 20:00] VITALS: BP 170/106
[2019-06-05] MEDS: MIRTAZAPINE 30MG TABLET PO SCH (20:59)
[2019-06-06] VITALS: BP 136/90
[2019-06-06] MEDS: HYDROCODONE/ACETAMINOPHEN 5/325MG TABLET PO PRN ×2 (01:08→05:05)
[2019-06-06 04:00] VITALS: BP 142/89
[2019-06-06 04:34] LABS: CHLORIDE 110 mEq/L (98-107)
[2019-06-06] MEDS ORDERED: POTASSIUM CHLORIDE 20MEQ TABLET SR PO NR ×2 (05:30→09:30)
[2019-06-06] MEDS: BLOOD SUGAR DIAGNOSTIC STRIP TEST SCH ×2 (05:42→12:10)
[2019-06-06] MEDS: OMEPRAZOLE 20MG CAPSULE EXTENDED RELEASE PO SCH (06:35)
[2019-06-06] MEDS: INSULIN LISPRO 100 UNITS/ML SUBCUT SCH (06:36)
[2019-06-06 08:00] VITALS: BP 138/94
[2019-06-06] MEDS: ATORVASTATIN CALCIUM 40MG TABLET PO SCH ×2 (09:00→10:16)
[2019-06-06] MEDS ORDERED: POTASSIUM CHLORIDE 20MEQ TABLET SR PO SCH (09:00)
[2019-06-06] MEDS ORDERED: CLOPIDOGREL 75MG TABLET PO SCH (09:00)
[2019-06-06] MEDS: ENOXAPARIN 40MG/0.4ML SYR SUBCUT SCH ×2 (09:00→10:17)
[2019-06-06] MEDS: ENALAPRIL 5MG TABLET PO SCH (10:16)
[2019-06-06] MEDS: FENOFIBRATE NANOCRYSTALLIZED 145MG TABLET PO SCH (10:16)
[2019-06-06] MEDS: AMLODIPINE 5MG TABLET PO SCH (10:16)
[2019-06-06] MEDS: LINAGLIPTIN 5MG TABLET PO SCH (10:17)
[2019-06-06] MEDS: CLONAZEPAM 1MG TABLET PO SCH (10:17)
[2019-06-06] MEDS: CLOTRIMAZOLE 1% CREAM 30GM TOP SCH (10:18)
[2019-06-06 12:00] VITALS: BP 131/86
== END 2019-06-06 12:59 | disposition left against medical advice (07) | DRG 347 ==
LOC: ER 17:41 → 8WST 23:24 → EDBEDREQ 23:28 → EDBEDREQTM 23:28 → ENRESERV 06-04 00:15
PROVIDERS: ADMIT Internal Medicine; ATTEND Internal Medicine
DX: M43.17 Spondylolisthesis, lumbosacral region (principal); E11.42 Type 2 diabetes mellitus with diabetic polyneuropathy; E11.65 Type 2 diabetes mellitus with hyperglycemia; F20.9 Schizophrenia, unspecified; B35.3 Tinea pedis; D64.9 Anemia, unspecified; D72.821 Monocytosis (symptomatic); E78.00 Pure hypercholesterolemia, unspecified; E87.6 Hypokalemia; Z53.21 Procedure and treatment not carried out due to patient leaving prior to being seen by health care provider; Z86.73 Personal history of transient ischemic attack (TIA), and cerebral infarction without residual deficits; Z79.84 Long term (current) use of oral hypoglycemic drugs; Z72.0 Tobacco use; Z96.651 Presence of right artificial knee joint; G40.909 Epilepsy, unspecified, not intractable, without status epilepticus; S91.119A Laceration without foreign body of unspecified toe without damage to nail, initial encounter; F41.9 Anxiety disorder, unspecified; M48.061 Spinal stenosis, lumbar region without neurogenic claudication; E78.5 Hyperlipidemia, unspecified; G89.29 Other chronic pain; I10 Essential (primary) hypertension; Z53.20 Procedure and treatment not carried out because of patient's decision for unspecified reasons; Z79.4 Long term (current) use of insulin; W45.0XXA Nail entering through skin, initial encounter; Y93.89 Activity, other specified; Y92.89 Other specified places as the place of occurrence of the external cause; Y99.8 Other external cause status
CPT/HCPCS: 36415; 70551; 71045; 72131; 72146; 72148; 80048; 80061; 80305; 80320; 82550; 82553; 82728; 82962; 83036; 83540; 83550; 83735; 83880; 83930; 84443; 84484; 87070; 93005; 96361; 96374; 96375; 96376; 99285; J1650; J1815; J2060; J2270; J2405; J3480; J7030; J7050; J7060; G0480

== ENCOUNTER 2020-05-26 02:57 | Emergency (ER) | payer MEDICAID, OTHER ==
[~2020-05-26] VITALS: Ht 180.3 cm; Wt 82.0 kg
[~2020-05-26 02:57] MED LIST changes: +CLOT15CR2 TOP; +FENO145T25 PO; -FENO145T36 PO; +INSU100I28 SQ
[2020-05-26] MEDS ORDERED: KETOROLAC 30MG/ML VIAL IM ONE (03:45)
[2020-05-26] MEDS ORDERED: HYDROCODONE/ACETAMINOPHEN 5/325MG TABLET PO ONE (04:00)
[2020-05-26 04:13] VITALS: BP 135/79
== END 2020-05-26 04:15 | disposition home or self-care (01) ==
LOC: ER 02:57
DX: G89.29 Other chronic pain (principal); M79.10 Myalgia, unspecified site; M19.90 Unspecified osteoarthritis, unspecified site; E78.00 Pure hypercholesterolemia, unspecified; F20.9 Schizophrenia, unspecified; M10.9 Gout, unspecified; E11.9 Type 2 diabetes mellitus without complications; I11.9 Hypertensive heart disease without heart failure; Z96.659 Presence of unspecified artificial knee joint; Z98.890 Other specified postprocedural states; Z79.4 Long term (current) use of insulin
CPT/HCPCS: 96372; 99283; J1885